=== PATIENT | female | born 1990 | race Caucasian/White ===

== ENCOUNTER 2018-06-16 17:07 | Emergency (ER) | payer MEDICAID ==
[~2018-06-16] VITALS: Ht 170.2 cm; Wt 47.0 kg
[~2018-06-16 17:07] MED LIST: BAC15O TP; HYDR1TAB PO; IBUP-1984 PO; NO HOME MEDS; RIFA300C4 PO; [UNRECOGNIZED DRUG - CODE] PO
[2018-06-16 18:28] VITALS: BP 104/67
[2018-06-16 18:31] LABS: BASOPHILS # (AUTO) 0.1 X10'3 (0-0.2); BASOPHILS % (AUTO) 1.9 % (0-1); EOSINOPHILS # (AUTO) 0.2 X10'3 (0-0.9); EOSINOPHILS % (AUTO) 2.9 % (0-6); HEMATOCRIT 32.2 % (35.0-45.0); HEMOGLOBIN 10.9 g/dl (12.0-16.0); LYMPHOCYTES # (AUTO) 1.9 X10'3 (1.1-4.8); LYMPHOCYTES % (AUTO) 28.6 % (21-51); MEAN CORPUSCULAR HEMOGLOBIN 25.2 PG (27.0-31.0); MEAN CORPUSCULAR HGB CONC 33.7 % (33.0-36.5); MEAN CORPUSCULAR VOLUME 74.8 FL (78-98); MONOCYTES # (AUTO) 0.7 X10'3 (0-0.9); MONOCYTES % (AUTO) 10.5 % (2-12); NEUTROPHILS # (AUTO) 3.8 X10'3 (1.8-7.7); NEUTROPHILS % (AUTO) 56.1 % (42-75); PLATELET COUNT 227 X10'3 (140-440); RED BLOOD COUNT 4.31 X10'6 (4.20-5.60); RED CELL DISTRIBUTION WIDTH 14.8 % (11.5-14.5); WHITE BLOOD COUNT 6.8 X10'3 (4.5-11.0)
[2018-06-16 18:45] LABS: ALANINE AMINOTRANSFERASE 96 U/L (12-78); ALBUMIN 2.9 G/DL (3.4-5.0); ALBUMIN/GLOBULIN RATIO 0.6 (1.1-1.5); ALKALINE PHOSPHATASE 271 IU/L (46-116); ANION GAP 8 (8-16); ASPARTATE AMINO TRANSFERASE 96 U/L (10-37); BILIRUBIN,TOTAL 0.4 MG/DL (0.1-1.0); BLOOD UREA NITROGEN 11 MG/DL (7-18); BUN/CREATININE RATIO 17.2 (6.6-38.0); CALCIUM 8.3 MG/DL (8.5-10.1); CHLORIDE 99 MMOL/L (99-107); CREATININE 0.64 MG/DL (0.40-0.90); GLUCOSE 104 MG/DL (70-104); MAGNESIUM 2.1 MG/DL (1.5-2.4); SODIUM 136 MMOL/L (135-145); TOTAL CARBON DIOXIDE 28.7 MMOL/L (24-32); eGFR > 90 ML/MIN
[2018-06-16 18:50] LABS: URINE HCG NEGATIVE (NEG)
[2018-06-16 18:52] LABS: CLARITY,URINE SLIGHTLY CLOUDY (Clear); COLOR,URINE YELLOW (Yellow); GLUCOSE, URINE NEGATIVE (Neg); KETONES,URINE NEGATIVE (Neg); LEUKOCYTE ESTERASE ,URINE SMALL (Neg); NITRITES, URINE NEGATIVE (Neg); OCCULT BLOOD,URINE NEGATIVE (Neg); PROTEIN,URINE TRACE mg/dl (Neg)
[2018-06-16 18:53] LABS: UA COLLECTION TYPE CLN CATCH MIDSTREAM
[2018-06-16 19:02] LABS: BACTERIA,URINE FEW /HPF (Neg); RBC,URINE NONE SEEN /HPF (0-2)
[2018-06-16 19:03] LABS: MUCUS STRANDS MODERATE /LPF (Neg); SQUAMOUS EPITHELIAL CELL,UR MANY /LPF (FEW); YEAST FEW /HPF (NEGATIVE)
[2018-06-16] MEDS ORDERED: NAPR-56 PO (19:12)
[2018-06-16] MEDS ORDERED: METH4TAB3 PO (19:12)
[2018-06-16] MEDS ORDERED: HYDR28CR14 TOP (19:12)
[2018-06-16] MEDS ORDERED: ACYC-202 PO (19:12)
== END 2018-06-16 19:24 | disposition home or self-care (01) ==
LOC: ER 17:07
DX: L51.9 Erythema multiforme, unspecified (principal); F11.90 Opioid use, unspecified, uncomplicated; Z88.0 Allergy status to penicillin; Z79.899 Other long term (current) drug therapy
CPT/HCPCS: 36415; 71045; 80053; 81001; 81025; 83605; 83735; 84145; 85025; 87040; 93005; 99285

== ENCOUNTER 2021-04-28 08:45 | Outpatient (CLI) | payer MEDICAID ==
[~2021-04-28 08:45] MED LIST changes: +HYDR28CR14 TOP; +METH4TAB3 PO
== END 2021-04-28 23:59 | disposition home or self-care (01) ==
LOC: CARD DIAG 08:45
DX: F11.20 Opioid dependence, uncomplicated (principal)
CPT/HCPCS: 93005

== ENCOUNTER 2021-06-30 13:12 | Outpatient (CLI) | payer MEDICAID | END 2021-06-30 23:59 | disposition home or self-care (01) | LOC: RAD 13:12 | DX: F11.20 Opioid dependence, uncomplicated (principal) | CPT/HCPCS: 93005 ==

== ENCOUNTER 2021-09-29 13:16 | Outpatient (CLI) | payer MEDICAID | END 2021-09-29 23:59 | disposition home or self-care (01) | LOC: LAB 13:16 | DX: F11.20 Opioid dependence, uncomplicated (principal) | CPT/HCPCS: 93005 ==

== ENCOUNTER 2022-12-28 14:07 | Outpatient (CLI) | payer MEDICAID ==
[~2022-12-28 14:07] MED LIST changes: -RIFA300C4 PO; +RIFA300C9 PO
== END 2022-12-28 23:59 | disposition home or self-care (01) ==
LOC: RAD 14:07
PROVIDERS: ATTEND General Practice
DX: F11.20 Opioid dependence, uncomplicated (principal)
CPT/HCPCS: 93005

== ENCOUNTER 2024-01-10 15:30 | Outpatient (CLI) | payer MEDICAID ==
[~2024-01-10 15:30] MED LIST changes: +CEPH-585 PO; +PHEN-786 PO
== END 2024-01-10 23:59 | disposition home or self-care (01) ==
LOC: RAD 15:30
PROVIDERS: ATTEND Physician Assistant
DX: R00.1 Bradycardia, unspecified (principal); F11.20 Opioid dependence, uncomplicated
CPT/HCPCS: 93005

== ENCOUNTER 2024-12-18 13:42 | Outpatient (CLI) | payer MEDICAID ==
[~2024-12-18 13:42] MED LIST changes: -CEPH-585 PO; +NITR100C PO; +RIFA300C65 PO; -RIFA300C9 PO
== END 2024-12-18 23:59 | disposition home or self-care (01) ==
LOC: RAD 13:42
PROVIDERS: ATTEND Physician Assistant
DX: R00.1 Bradycardia, unspecified (principal); F11.20 Opioid dependence, uncomplicated
CPT/HCPCS: 93005